=== PATIENT | female | born 1950 | race Caucasian/White ===

== ENCOUNTER 2025-02-10 09:54 | Day surgery (SDC) | payer BC, MEDICARE ==
[~2025-02-10 09:54] MED LIST: Acetaminophen 325 MG Tab PO PRN; Acetaminophen/Codeine 300-30 MG Tab PO PRN; Ondansetron 4 MG/2 ML SDV IVPUSH PRN
[2025-02-10] MEDS: Proparacaine 0.5% Ophth Soln 15 ML Bottle EYELF ONE ×2 (10:17→11:19)
[2025-02-10] MEDS: Moxifloxacin 0.5% Ophth Soln 3 ML Bottle EYELF ONE (10:18)
[2025-02-10] MEDS: Povidone-Iodine 5% Sterile Ophth Soln 30 ML Bottle EYELF ONE ×2 (10:20→11:22)
[2025-02-10] MEDS: Tropicamide 1% Ophth Soln 15 ML Bottle EYELF ONE (10:21)
[2025-02-10] MEDS: Phenylephrine 10% Ophth Soln 5 ML Bot EYELF ONE (10:21)
[2025-02-10] MEDS: Timolol Maleate 0.5% Ophth Soln 5 ML Bottle EYELF ONE (10:22)
[2025-02-10] MEDS: Cataract Ophth Solution EYELF ONE (10:24)
[2025-02-10] MEDS: Sodium Chloride 0.9% 10 ML Syringe FLUSH PRN (10:33)
[2025-02-10] MEDS: Apraclonidine 0.5% Ophth Soln 5 ML Bot EYELF ONE (11:24)
[2025-02-10] MEDS: Diclofenac Sodium 0.1% Ophth Soln 5 ML Bottle EYELF ONE (11:24)
[2025-02-10] MEDS: Dexamethasone/Neomycin/Polymyxin B Ophth Oint 3.5 GM Tube EYELF ONE (11:25)
[2025-02-10] MEDS: Lidocaine 1% 30 ML SDV ONE (11:25)
[2025-02-10] MEDS: VANCOmycin 500 MG SDV EYELF ONE (11:26)
== END 2025-02-10 12:09 | disposition home or self-care (01) ==
LOC: DL.SDS 09:54
PROVIDERS: ATTEND Ophthalmology
DX: H25.812 Combined forms of age-related cataract, left eye (principal); I10 Essential (primary) hypertension; E78.5 Hyperlipidemia, unspecified; Z87.891 Personal history of nicotine dependence; Z79.899 Other long term (current) drug therapy; Z88.8 Allergy status to other drugs, medicaments and biological substances; Z88.0 Allergy status to penicillin; Z88.1 Allergy status to other antibiotic agents
CPT/HCPCS: A9270-GY; J3370; J3490

== ENCOUNTER 2025-03-03 08:52 | Day surgery (SDC) | payer MEDICARE ==
[2025-03-03] MEDS ORDERED: Midazolam 1 MG/ML 2 ML SDV IV ONE (08:53)
[2025-03-03] MEDS ORDERED: Sodium Chloride 0.9% 10 ML Syringe IV ONE (08:53)
[2025-03-03] MEDS ORDERED: Dexamethasone 4 MG/ML SDV IV ONE (08:53)
[2025-03-03] MEDS ORDERED: Acetaminophen/Codeine 300-30 MG Tab PO PRN (09:15)
[2025-03-03] MEDS ORDERED: Acetaminophen 325 MG Tab PO PRN (09:15)
[2025-03-03] MEDS ORDERED: Ondansetron 4 MG/2 ML SDV IVPUSH PRN (09:15)
[2025-03-03] MEDS: Sodium Chloride 0.9% 10 ML Syringe FLUSH PRN (09:33)
[2025-03-03] MEDS: Proparacaine 0.5% Ophth Soln 15 ML Bottle EYERT ONE ×2 (09:34→10:11)
[2025-03-03] MEDS: Moxifloxacin 0.5% Ophth Soln 3 ML Bottle EYERT ONE (09:35)
[2025-03-03] MEDS: Povidone-Iodine 5% Sterile Ophth Soln 30 ML Bottle EYERT ONE ×2 (09:35→10:11)
[2025-03-03] MEDS: Tropicamide 1% Ophth Soln 15 ML Bottle EYERT ONE (09:36)
[2025-03-03] MEDS: Timolol Maleate 0.5% Ophth Soln 5 ML Bottle EYERT ONE (09:37)
[2025-03-03] MEDS: Phenylephrine 10% Ophth Soln 5 ML Bot EYERT PRN (09:37)
[2025-03-03] MEDS: Cataract Ophth Solution EYERT ONE (09:37)
[2025-03-03] MEDS: Diclofenac Sodium 0.1% Ophth Soln 5 ML Bottle EYERT ONE (10:12)
[2025-03-03] MEDS: Apraclonidine 0.5% Ophth Soln 5 ML Bot EYERT ONE (10:12)
[2025-03-03] MEDS: Dexamethasone/Tobramycin 0.1-0.3% Ophth Oint 3.5 GM Tube EYERT ONE (10:13)
[2025-03-03] MEDS: VANCOmycin 500 MG SDV EYERT ONE (10:19)
== END 2025-03-03 11:40 | disposition home or self-care (01) ==
LOC: DL.SDS 08:52
PROVIDERS: ATTEND Ophthalmology
DX: H25.811 Combined forms of age-related cataract, right eye (principal); I10 Essential (primary) hypertension; E78.5 Hyperlipidemia, unspecified; Z87.891 Personal history of nicotine dependence; Z79.899 Other long term (current) drug therapy; Z88.0 Allergy status to penicillin; Z88.1 Allergy status to other antibiotic agents
CPT/HCPCS: A9270-GY; J1100; J2250; J3370; J3490